=== PATIENT | female | born 1940 | race Caucasian/White ===

== ENCOUNTER → 2023-01-25 | Outpatient (CLI) | payer OTHER ==
[~2023-01-25] MED LIST: AMITRIPTYLINE50 MG PO; ASPI-COR81 M1 PO; CELEXA10 MG PO; COUMADIN1 MG PO; DAYPRO600 M1 PO; DILTIAZEM360 MG PO; PROTONIX20 MG PO; RANITIDINE15 MG/M1 PO; ROBAXIN750 MG PO
== END | disposition home or self-care (01) ==
LOC: RESCLI 14:05
PROVIDERS: ATTEND Student in an Organized Health Care Education/Training Program
DX: I48.21 Permanent atrial fibrillation (principal); I13.0 Hypertensive heart and chronic kidney disease with heart failure and stage 1 through stage 4 chronic kidney disease, or unspecified chronic kidney disease; E11.22 Type 2 diabetes mellitus with diabetic chronic kidney disease; N18.4 Chronic kidney disease, stage 4 (severe); I50.32 Chronic diastolic (congestive) heart failure; F41.9 Anxiety disorder, unspecified; Z88.8 Allergy status to other drugs, medicaments and biological substances; Z82.3 Family history of stroke; Z82.49 Family history of ischemic heart disease and other diseases of the circulatory system; Z79.899 Other long term (current) drug therapy